=== PATIENT | male | born 1995 | race American Indian/Alaskan Native ===

== ENCOUNTER 2017-02-20 20:20 | Emergency (ER) | payer SELFPAY ==
[2017-02-20 21:08] VITALS: BP 125/77
--- NOTE | 2017-02-21 08:03 | XRay Report ---
ROUTINE CHEST, TWO VIEWS: HISTORY: Shortness of breath. The trachea, heart, mediastinal contour, lung marinelli and bony thorax are unremarkable. IMPRESSION: Unremarkable chest x-ray.
== END 2017-02-21 19:40 | disposition left against medical advice (07) ==
LOC: ED 20:20
DX: R06.00 Dyspnea, unspecified (principal); Z53.21 Procedure and treatment not carried out due to patient leaving prior to being seen by health care provider
CPT/HCPCS: 71020